=== PATIENT | female | born 1980 | race Caucasian/White ===

== ENCOUNTER 2020-09-24 05:45 | Inpatient (IN) | payer OTHER ==
[2020-09-24] MEDS ORDERED: Celecoxib 200 MG Cap PO ONE (06:00)
[2020-09-24] MEDS ORDERED: Acetaminophen 500 MG Tab PO ONE (06:00)
[2020-09-24] MEDS ORDERED: Scopolamine 1.5 MG Transdermal Patch TOP SCH (06:00)
[2020-09-24] MEDS ORDERED: Dexamethasone 4 MG/ML SDV ONE (06:16)
[2020-09-24] MEDS ORDERED: Rocuronium 50 MG/5 ML Vial ONE (06:16)
[2020-09-24] MEDS ORDERED: Ondansetron 4 MG/2 ML SDV ONE (06:16)
[2020-09-24] MEDS ORDERED: Succinylcholine 200 MG/10 ML MDV ONE (06:16)
[2020-09-24] MEDS ORDERED: fentaNYL 250 MCG/5 ML SDV ONE ×2 (06:16→08:32)
[2020-09-24] MEDS ORDERED: Propofol 200 MG/20 ML SDV ONE (06:16)
[2020-09-24] MEDS ORDERED: Neostigmine Methylsulfate 1 MG/ML 5 ML Syringe ONE (06:16)
[2020-09-24] MEDS ORDERED: Glycopyrrolate 0.2 MG/ML 5 ML MDV ONE (06:16)
[2020-09-24] MEDS ORDERED: Lactated Ringers 1,000 ML ONE (06:20)
[2020-09-24 06:52] LABS: HEMOGLOBIN A1C 6.2 % (4.5-6.2)
[2020-09-24] MEDS ORDERED: Dextrose 5%-Lactated Ringers 1,000 ML IV SCH ×2 (07:00→11:15)
[2020-09-24] MEDS ORDERED: Ketamine 50 MG in Sodium Chloride 0.9% 49.5 ML IV SCH (07:45)
[2020-09-24] MEDS ORDERED: cefOXitin 2 GM in Sodium Chloride 0.9% 50 ML IV ONE (07:45)
[2020-09-24] MEDS ORDERED: Ketamine 500 MG/5 ML MDV IV SCH (07:45)
[2020-09-24] MEDS ORDERED: Magnesium Sulfate 3 GM in Sodium Chloride 0.9% 100 ML IV SCH (07:45)
[2020-09-24] MEDS ORDERED: cefOXitin 2 GM Vial ONE (08:25)
[2020-09-24] MEDS ORDERED: Sodium Chloride 0.9% 10 ML ONE (09:06)
[2020-09-24] MEDS ORDERED: Phenylephrine 1% 10 MG/ML SDV ONE (09:06)
[2020-09-24] MEDS ORDERED: hydrOXYzine HCL 100 MG/2 ML SDV IM ONE (10:06)
[2020-09-24] MEDS ORDERED: Glucagon,Human Recombinant 1 MG Vial IM PRN (10:14)
[2020-09-24] MEDS ORDERED: 50% Dextrose in Water 50 ML Syringe IVPUSH PRN (10:14)
[2020-09-24] MEDS ORDERED: Insulin Lispro 100 Unit/ML 3 ML KwikPen SUBCUT ONE (10:30)
[2020-09-24] MEDS: Magnesium Sulfate/Water 2 GM/50 ML BAG IV SCH ×2 (11:16→13:10)
[2020-09-24] MEDS: Cyclobenzaprine 10 MG Tab PO PRN (11:41)
[2020-09-24] MEDS ORDERED: diphenhydrAMINE 50 MG/ML SDV IVPUSH PRN (12:00)
[2020-09-24] MEDS ORDERED: Labetalol 20 MG/4 ML Syringe IVPUSH PRN (12:00)
[2020-09-24] MEDS ORDERED: Ondansetron 4 MG/2 ML SDV IVPUSH PRN (12:00)
[2020-09-24] MEDS ORDERED: Acetaminophen 500 MG Tab PO PRN (12:00)
[2020-09-24] MEDS ORDERED: HYDROmorphone 0.5 MG/0.5 ML Syringe IVPUSH PRN (12:00)
[2020-09-24] MEDS ORDERED: Calcium Gluconate 10% 1 GM/10 ML SDV IVPUSH PRN (12:00)
[2020-09-24] MEDS ORDERED: traMADol 50 MG Tab PO PRN (12:00)
[2020-09-24] MEDS ORDERED: Metoclopramide 10 MG/2 ML SDV IVPUSH PRN (12:00)
[2020-09-24] MEDS: Insulin Lispro 100 Unit/ML 3 ML KwikPen SUBCUT SCH ×3 (12:02→22:14)
[2020-09-24] MEDS: Pantoprazole 40 MG Vial IVPUSH SCH (12:05)
[2020-09-24] MEDS: HYDROmorphone 1 MG/ML Syringe IV PRN ×2 (12:58→17:20)
[2020-09-24] MEDS: oxyCODONE 5 MG Tab PO PRN ×2 (12:59→20:03)
[2020-09-24] MEDS: Acetaminophen 500 MG Tab PO SCH ×2 (14:05→22:14)
[2020-09-24] MEDS: cefOXitin 2 GM in Sodium Chloride 0.9% 50 ML IV SCH ×2 (14:05→20:02)
[2020-09-24] MEDS: hydrOXYzine HCL 100 MG/2 ML SDV IM PRN (14:15)
[2020-09-24] MEDS ORDERED: MVI, Adult with Vitamin K 10 ML, Thiamine 200 MG, Zinc/Copper/Manganese/Selenium 1 ML i... IV SCH ×4 (16:00)
--- NOTE | 2020-09-24 17:00 | PCM.EKG ---
#1 Interpretation EKG Date: 09/24/20 Time: 07:20 Rhythm: NSR Rate (Beats/Min): 93 [place]: Normal P-Wave: Present QRS: Normal ST-T: Normal QT: Normal Comparison: NA - No Prior EKG EKG Interpretation Comments: Normal-appearing EKG
[2020-09-24] MEDS: Heparin Sodium 5,000 Units/ML Vial SUBCUT SCH (17:24)
[2020-09-25] MEDS: Cyclobenzaprine 10 MG Tab PO PRN (00:26)
[2020-09-25] MEDS: cefOXitin 2 GM in Sodium Chloride 0.9% 50 ML IV SCH ×3 (02:24→13:50)
[2020-09-25] MEDS: oxyCODONE 5 MG Tab PO PRN (02:25)
[2020-09-25] MEDS ORDERED: Iopamidol 612 MG/ML 50 ML SDV PO STA (03:46)
[2020-09-25] MEDS: Insulin Lispro 100 Unit/ML 3 ML KwikPen SUBCUT SCH ×4 (04:42→22:13)
[2020-09-25] MEDS: Heparin Sodium 5,000 Units/ML Vial SUBCUT SCH ×2 (05:57→18:18)
[2020-09-25] MEDS: Acetaminophen 500 MG Tab PO SCH ×3 (05:58→22:11)
[2020-09-25] MEDS ORDERED: Ondansetron 4 MG Tab.DIS PO PRN (07:13)
[2020-09-25] MEDS ORDERED: Lactated Ringers 1,000 ML IV SCH (07:15)
[2020-09-25] MEDS ORDERED: hydrOXYzine HCl 25 MG Tab PO PRN (07:15)
[2020-09-25] MEDS: hydrOXYzine HCL 100 MG/2 ML SDV IM PRN (07:32)
[2020-09-25] MEDS: Losartan 50 MG Tab PO SCH (08:43)
[2020-09-25] MEDS: Celecoxib 200 MG Cap PO SCH ×2 (08:44→22:11)
--- NOTE | 2020-09-25 08:44 | PN ---
DATE OF SERVICE: 09/25/2020 SUBJECTIVE: Shital is postop day 1. Upper GI was normal. Oral intake was 630, output 3300. CHRISTIANE drain put out 130 of a serosanguineous drainage. Last blood sugar was 152. REVIEW OF SYSTEMS: Remainder of review of systems negative for any pertinent positives, negatives. OBJECTIVE: GENERAL: Shital Rueda is a pleasant 40-year-old female. She is alert and oriented. VITAL SIGNS: TPR 97.9, 111, 16, blood pressure 127/82. HEENT: Negative. NECK: Supple. HEART: Regular rate and rhythm. LUNGS: Clear. ABDOMEN: Dressings dry and intact. CHRISTIANE drain intact. EXTREMITIES: Without peripheral edema. ASSESSMENT: Laparoscopic Salvador-en-Y gastric bypass surgery, liver biopsy, and repair of diaphragmatic hernia for morbid obesity, hepatomegaly, diaphragmatic hernia, and mediastinal lipoma. Date of surgery 09/24/2020. Surgeon: Kai Britton MD. PLAN: 1. Discontinue D5 LR IV. 2. Start LR 100 mL/hr. 3. Dressing off. May shower. 4. Step 2 gastric bypass diet without cereal. May shower. Discontinue cardiac monitoring and oximetry. Atarax 25 mg 1 to 2 every 4 hours p.r.n. pain. 5. Zofran ODT 4 mg every 4 hours p.r.n. nausea. Communication orders, 3 med cups per hour, record at bedside 1 every 20 minutes to assure adequate fluid intake. Ambulate 6 times daily. Continue use of incentive spirometer 10 times every hour while awake. Discussion regarding energy protocol. Preop teaching reinforced. Narcotics discontinued, and to work with nursing staff in regard to enforcing on energy protocol. 6. We will evaluate p.r.n. or in a.m. Consuelo Miramontes PA-C /[id number]
[2020-09-25] MEDS: SCOPOLAMINE PATCH CHECK TOP SCH (08:45)
--- NOTE | 2020-09-25 08:54 | CR ---
UGI Limited HISTORY: Postbariatric surgery FINDINGS: Patient swallowed water-soluble contrast. Upright views of the abdomen show no evidence of extravasation or obstruction. There is a surgical drain in the left upper quadrant IMPRESSION: Status post bariatric surgery No extravasation or obstruction seen
[2020-09-25] MEDS: Pantoprazole 40 MG Vial IVPUSH SCH (11:51)
[2020-09-25] MEDS ORDERED: MVI, Adult with Vitamin K 10 ML, Thiamine 200 MG, Zinc/Copper/Manganese/Selenium 1 ML i... IV SCH ×4 (16:00)
[2020-09-26] MEDS: Insulin Lispro 100 Unit/ML 3 ML KwikPen SUBCUT SCH ×2 (04:27→10:22)
[2020-09-26] MEDS: Heparin Sodium 5,000 Units/ML Vial SUBCUT SCH (05:04)
[2020-09-26] MEDS: Acetaminophen 500 MG Tab PO SCH (05:04)
[2020-09-26] MEDS ORDERED: Pantoprazole 40 MG Delayed-Release Granules 1 Packet PO SCH (07:30)
[2020-09-26] MEDS ORDERED: Cyanocobalamin (Vitamin B12) 1,000 MCG/ML SDV IM ONE (09:00)
[2020-09-26] MEDS: Celecoxib 200 MG Cap PO SCH (09:13)
[2020-09-26] MEDS: Losartan 50 MG Tab PO SCH (09:13)
[2020-09-26] MEDS: SCOPOLAMINE PATCH CHECK TOP SCH (09:15)
--- NOTE | 2020-09-28 15:24 | DISCH ---
FINAL DIAGNOSES: 1. Morbid obesity. 2. Marked hepatomegaly. 3. Paraesophageal diaphragmatic hernia. 4. Mediastinal lipoma. 5. Type 2 diabetes mellitus. 6. Hyperlipidemia. 7. Hypertension. 8. History of plantar fasciitis. OPERATIVE PROCEDURES: Done on date of admission: 1. Laparoscopic Salvador-en-Y gastric bypass with long limb gastroenterostomy. 2. Brian-Cut needle liver biopsy. 3. Repair of paraesophageal diaphragmatic hernia. 4. Excision of mediastinal lipoma. SUMMARY: This is a 40-year-old female presenting with longstanding morbid obesity and increasingly significant comorbidities. She is having increasing problems with type 2 diabetes mellitus and was on Victoza preoperatively. On the day of admission, the patient underwent laparoscopic Salvador-en-Y gastric bypass with the above additional procedures. Postoperatively, she has done very nicely. She is presently off the Victoza and any other diabetic medications with her blood sugars over the last 36 hours running in the 130 to 140 range. She will be discharged home with a step-2 diet until next appointment. She is only taking Celebrex and Tylenol for pain and will be holding the Victoza. We will have instruct her to measure blood sugars and bring in a log of her blood sugars to the appointment. She will be following with Consuelo Miramontes at [facility] on 10/05/2020. /[id number]
--- NOTE | 2020-10-01 14:08 | OR ---
DATE OF PROCEDURE: 09/24/2020 SURGEON: Kai Britton MD PREOPERATIVE DIAGNOSIS: Morbid obesity. POSTOPERATIVE DIAGNOSES: 1. Morbid obesity. 2. Marked hepatomegaly. 3. Paraesophageal diaphragmatic hernia. 4. Mediastinal lipoma. PROCEDURES PERFORMED: 1. Laparoscopic Salvador-en-Y gastric bypass with long limb gastroenterostomy (28916). 2. Brian-Cut needle liver biopsy (93421). 3. Repair of paraesophageal diaphragmatic hernia (82727). 4. Excision of mediastinal lipoma (05979). ANESTHESIA: General. CANDY BAR ATTENDANT: Consuelo Miramontes PA-C INDICATIONS FOR PROCEDURE: This is a 40-year-old female presenting with longstanding morbid obesity and increasingly significant comorbidities. After preoperative evaluation and discussion, she wished to proceed with a gastric bypass procedure. Potential risks of the procedure including bleeding, infection, leaks from various GI tract closures, problems with bowel obstruction over time, as well as the possibility of cardiopulmonary, septic, or hemorrhagic complications leading to were discussed, and the patient wishes to proceed. DETAILS OF PROCEDURE: The patient was taken to the operating room, and after general endotracheal anesthesia was induced, she was placed in a lithotomy position and the abdomen prepped and draped. 15 cm inferior and 5 cm left of the xiphoid process, a transverse incision was made and the peritoneal cavity entered under direct vision with an Optiview trocar and inflated to 15 mmHg pressure with CO2. Laparoscope was then reinserted. No underlying trocar insertion site injuries were seen. Following this, bilateral transversus abdominis plane blocks were placed, and 5 additional trocars were placed across the upper and mid abdomen. The patient was noted to have marked hepatomegaly with the liver being roughly twice normal size and grossly fatty infiltrated. Brian-Cut needle biopsies were obtained from the left lobe of the liver. Minimal bleeding from the biopsy sites was controlled with electrocautery. The omentum was then divided midline up to the level of the transverse colon. This allowed identification of the small bowel to the ligament of Treitz. The small bowel was then traced out 150 cm distal to that point and was divided transversely with a DORA stapler. The small bowel was then traced out an additional 175 cm where the [id number] enteroenterostomy was accomplished with internal firing of the Endo-DORA 60 mm stapler. Common opening was closed transversely with the same stapler and the angles anastomosed and mesenteric defect approximated with some 0 Ethibond sutures along with fibrin sealant. The divided end of the Salvador limb was from the mesentery for a few centimeters which allowed an antecolic position of the Salvador limb up to the level of the gastroesophageal junction without tension. The liver was then retracted anteriorly. The patient was noted to have a moderate-sized paraesophageal diaphragmatic hernia which contained some omentum and perigastric fat. The hernia was reduced at this point and the peritoneum overlying incised and reflected downward. During the course of dissection, a mediastinal lipoma was encountered, and to facilitate more adequate crural repair, this was removed and sent as a separate specimen. A crural repair was then accomplished anteriorly with 0 Ethibond sutures reinforced with PTFE pledgets. The gastrointestinal balloon catheter was then inflated to 15 mL and pulled up snugly against the EG junction. Gastric wall over the apex of the balloon was then marked with electrocautery and balloon catheter deflated and pulled up from the esophagus. The lesser omental tissue adjacent to the gastric cardia was then incised, allowing dissection behind the stomach at that level. Pouch formation was initiated with transverse firing of the DORA stapler at the level of the cauterized ilya on the gastric cardia. The remainder of the pouch was then constructed with additional firings of the DORA stapler up to and through the angle of His. Upon completion of the pouch, both staple lines were noted to be intact. The anvil of the 25 mm EEA stapler was then attached to a Cochran sump type tube. The latter was brought down through the mouth and taken out through a small opening in the gastric pouch, allowing the anvil likewise to be pulled down to within the gastric pouch. The divided end of the Salvador limb was then opened and the main body of EEA stapler passed several centimeters into the lumen of the small bowel, brought up the anvil, united with it, thus creating the gastrojejunostomy. Upon removal of the stapler, double donuts of mucosa were noted within it. The small bowel was closed off with a vascular staple line. The gastrojejunostomy was then reinforced with some 3-0 Vicryl seromuscular stitch along with fibrin sealant. A leak test was accomplished with injection of 120 mL of air in the gastric pouch while it was submerged with cefoxitin-containing saline solution. No leaks were identified. A single Ryland-Moralez drain was placed through the left lateral trocar site and positioned adjacent to the gastrojejunostomy, and from there, up into the splenic fossa. The trocars were then sequentially removed and the peritoneal cavity deflated. The incisions were closed with 4-0 Vicryl skin stitch and drains fixed with some 4-0 Vicryl stitch as well. The patient was taken to the recovery room in satisfactory condition. There were no evident complications. Physician Building Construction Inspector, Consuelo Miramontes, played an essential role in assisting in this case, helping to position the patient, retracting structures as needed, as well as suturing and cutting sutures when indicated. Her presence improved the patient's safety and decreased the operative time. Kai Britton MD /[id number]
== END 2020-09-26 11:23 | disposition home or self-care (01) | DRG 621 ==
LOC: JP.SDSSCHI 05:45 → JP.SDS 05:45 → EDSTATUS 07:15 → JP.MS 10:05
PROVIDERS: ADMIT Surgery; ATTEND Surgery
PROC: 0D164ZA Bypass Stomach to Jejunum, Percutaneous Endoscopic Approach (ICD-10-PCS; principal; 2020-09-24)
PROC: 0FB24ZX Excision of Left Lobe Liver, Percutaneous Endoscopic Approach, Diagnostic (ICD-10-PCS; 2020-09-24)
PROC: 0BQT4ZZ Repair Diaphragm, Percutaneous Endoscopic Approach (ICD-10-PCS; 2020-09-24)
PROC: 0JB63ZZ Excision of Chest Subcutaneous Tissue and Fascia, Percutaneous Approach (ICD-10-PCS; 2020-09-24)
DX: E66.01 Morbid (severe) obesity due to excess calories (principal); R16.0 Hepatomegaly, not elsewhere classified; K44.9 Diaphragmatic hernia without obstruction or gangrene; E11.9 Type 2 diabetes mellitus without complications; I10 Essential (primary) hypertension; E78.2 Mixed hyperlipidemia; Z90.49 Acquired absence of other specified parts of digestive tract; Z98.51 Tubal ligation status; Z91.040 Latex allergy status; Z88.2 Allergy status to sulfonamides
CPT/HCPCS: 36415; 74240; 74240-26; 80053; 81025; 82947; 83036; 83735; 84100; 85027; 86850; 86900; 86901; 88304; 88307; 88313; 93005; 94762; A9270-GY; C9113; J0171; J0330; J0694; J1100; J1170; J1644; J1815; J2370; J2405; J2704; J2710; J2795; J3010; J3410; J3411; J3420; J3475; J3490; J7120; J7121; Q9967